=== PATIENT | male | born 1950 | race Caucasian/White ===

== ENCOUNTER 2017-01-20 14:57 | Inpatient (IN) | payer MEDICARE, OTHER ==
[2017-01-20] MEDS ORDERED: Sodium Chloride 0.9% 2.5 ML Syringe FLUSH PRN (15:06)
[2017-01-20] MEDS ORDERED: Sodium Chloride 0.9% 10 ML Syringe FLUSH PRN (15:06)
[2017-01-20] MEDS ORDERED: Sodium Chloride 0.9% 1,000 ML IV ONE ×2 (15:09→15:35)
[2017-01-20] MEDS ORDERED: Pantoprazole 40 MG Vial IVPUSH ONE (15:32)
--- NOTE | 2017-01-20 15:34 | EDM.PDOC ---
[id number]: HEMOGLOBIN LEVEL IS OFF Time Seen by Provider: 01/20/17 15:05 Source of Information: Reports: Patient History Limitations: Reports: No limitations - History of Present Illness INITIAL COMMENTS - FREE TEXT/NARRATIVE: History of present illness: [] Patient has been having black tarry stools for one month. He was seen in clinic today and had blood work done with an H&H of 04/04. Patient states he does feel weak, gets short of breath with exertion early and has been having brief episodes lasting a minute of chest pain. Patient is on Coumadin for atrial fibrillation and was taking xarelto in 2013 and suffered a GI bleed. He was then taken off anticoagulants but we started on Coumadin. Review of systems: As per history of present illness and below otherwise all systems reviewed and negative. Past medical history: As per history of present illness and as reviewed below otherwise noncontributory. Surgical history: As per history of present illness and as reviewed below otherwise noncontributory. Social history: No reported history of drug or alcohol abuse. Family history: As per history of present illness and as reviewed below otherwise noncontributory. Physical exam: General: Well developed, well nourished in NAD HEENT: Atraumatic, normocephalic, pupils reactive, negative for conjunctival pallor or scleral icterus, mucous membranes moist, throat clear, neck supple, nontender, trachea midline. Lungs: Clear to auscultation, breath sounds equal bilaterally, chest nontender. Heart: S1S2, regular, negative for clicks, rubs, or JVD. Abdomen: Soft, nondistended, nontender. Negative for masses or hepatosplenomegaly. Negative for costovertebral tenderness. Pelvis: Stable nontender. Genitourinary: Deferred. Rectal: Guaiac Positive black tarry stool Extremities: Atraumatic, negative for cords or calf pain. Neurovascular unremarkable. Neuro: Awake, alert, oriented. Cranial nerves II through XII unremarkable. Cerebellum unremarkable. Motor and sensory unremarkable throughout. Exam nonfocal. Diagnostics: [] Labs Therapeutics: [] IV hydration and blood has been ordered for transfusion. Protonix bolus and drip had been Ordered. Impression: [] GI bleed Plan: [] Admit to ICU to stabilize patient. Dr. Reddy was informed of this patient while in the ED. We will likely scope him as an outpatient. Definitive disposition and diagnosis as appropriate pending reevaluation and review of above. - Related Data Allergies/ADRs: Allergies Allergy/AdvReac Type Severity Reaction Status Date / Time No Known Allergies Allergy Verified 01/20/17 15:12 Home Meds: Home Meds Amiodarone HCl 100 mg PO DAILY 01/20/17 [History] Cholecalciferol (Vitamin D3) [Vitamin D3] 1,000 unit PO BID 01/20/17 [History] Cyanocobalamin (Vitamin B-12) [B-12] 1,000 mcg PO DAILY 01/20/17 [History] Fluticasone/Salmeterol [Advair Diskus 500-50] 1 puff INH BID 01/20/17 [History] Furosemide 10 mg PO BID 01/20/17 [History] Losartan [Cozaar] 25 mg PO DAILY 01/20/17 [History] Metoprolol Succinate [Toprol XL] 100 mg PO DAILY 01/20/17 [History] Rosuvastatin [Crestor] 40 mg PO BEDTIME 01/20/17 [History] SitaGLIPtin [Januvia] 50 mg PO DAILY 01/20/17 [History] Warfarin [Coumadin] 1.5 mg PO SUMOWEFR@1400 01/20/17 [History] Warfarin [Coumadin] 3 mg PO TUTHSA@1400 01/20/17 [History] Past Medical History Cardiovascular History: Reports: Bypass, CAD, High cholesterol, Hypertension, [place] Respiratory History: Reports: COPD Gastrointestinal History: Reports: GI bleed Genitourinary History: Reports: Renal disease Endocrine/Metabolic History: Reports: Diabetes, type II Hematologic History: Reports: Blood transfusion(s) - Infectious Disease History Infectious Disease History: Reports: Chicken pox, Measles, Mumps Social & Family History - Family History Family Medical History: Noncontributory - Tobacco Use Smoking Status *Q: Current Every Day Smoker Years of Tobacco use: 45 Packs/Tins Daily: 0.3 - Alcohol Use Days Per Week of Alcohol Use: 1 Number of Drinks Per Day: 5 Total Drinks Per Week: 5 - Recreational Drug Use Recreational Drug Use: No ED ROS GENERAL - Review of Systems Review Of Systems: See Below (See history of present illness) ED EXAM, GI/ABD - Physical Exam Exam: See Below (See history of present illness) Course - Vital Signs Last Recorded V/S: Last Vital Signs Temp 36.1 C 01/20/17 15:09 Pulse 96 01/20/17 15:48 Resp 18 01/20/17 15:09 BP 88/57 L 01/20/17 15:58 Pulse Ox 98 01/20/17 15:29 - Orders/Labs/Meds Orders: Active Orders 24 hr Category Date Time Status EKG Documentation Completion [RC] STAT Care 01/20/17 15:27 Active Guaiac [OCCULT BLOOD DIAGNOSTIC] [OP] Stat Lab 01/20/17 15:24 Ordered RED BLOOD CELLS LP [BBK] Stat Lab 01/20/17 15:07 Ordered TYPE AND SCREEN [BBK] Stat Lab 01/20/17 15:07 Ordered Pantoprazole [ProTONIX IV] 80 mg Med 01/20/17 15:45 Active Sodium Chloride 0.9% [Normal Saline] 100 ml IV Q10H Sodium Chloride 0.9% [Saline Flush] Med 01/20/17 15:06 Active 10 ml FLUSH ASDIRECTED PRN Sodium Chloride 0.9% [Saline Flush] Med 01/20/17 15:06 Active 2.5 ml FLUSH ASDIRECTED PRN Peripheral IV Insertion Adult [OM.PC] Stat Oth 01/20/17 15:06 Ordered Medication Orders Pantoprazole Sodium 80 mg/ (Sodium Chloride) 100 mls @ 10 mls/hr IV Q10H CRUZ Sodium Chloride (Saline Flush) 10 ml FLUSH ASDIRECTED PRN PRN Reason: Keep Vein Open Sodium Chloride (Saline Flush) 2.5 ml FLUSH ASDIRECTED PRN PRN Reason: Keep Vein Open Labs: Laboratory Tests 01/20/17 Range/Units 15:00 Troponin I < 0.10 (0.0-0.29) NG/ML Meds: Medications Generic Name Dose Route Start Last Admin Trade Name Freq PRN Reason Stop Dose Admin Pantoprazole Sodium 80 mg/ 100 mls @ 10 mls/hr 01/20/17 15:45 Sodium Chloride IV Q10H CRUZ Sodium Chloride 10 ml 01/20/17 15:06 Saline Flush FLUSH ASDIRECTED PRN Keep Vein Open Sodium Chloride 2.5 ml 01/20/17 15:06 Saline Flush FLUSH ASDIRECTED PRN Keep Vein Open Discontinued Medications Generic Name Dose Route Start Last Admin Trade Name Freq PRN Reason Stop Dose Admin Sodium Chloride 1,000 mls @ 999 mls/hr 01/20/17 15:09 01/20/17 15:00 Normal Saline IV 01/20/17 16:09 999 mls/hr .Bolus ONE Administration Pantoprazole Sodium 80 mg/ 100 mls @ 10 mls/hr 01/20/17 15:45 Sodium Chloride IV .Continuous CRUZ Sodium Chloride 1,000 mls @ 999 mls/hr 01/20/17 15:35 01/20/17 15:37 Normal Saline IV 01/20/17 16:35 999 mls/hr .Bolus ONE Administration Pantoprazole Sodium 80 mg 01/20/17 15:32 01/20/17 15:41 Protonix Iv IVPUSH 01/20/17 15:33 80 mg .BOLUS ONE Administration Departure - Departure Time of Disposition: 16:51 Disposition: Admitted As Inpatient 65 Condition: good Clinical Impression: GI bleed Qualifiers: GI bleed type/associated pathology: melena Qualified Code(s): K92.1 - Melena - My Orders Last 24 Hours: My Active Orders 01/20/17 15:06 Sodium Chloride 0.9% [Saline Flush] 10 ml FLUSH ASDIRECTED PRN Sodium Chloride 0.9% [Saline Flush] 2.5 ml FLUSH ASDIRECTED PRN Peripheral IV Insertion Adult [OM.PC] Stat 01/20/17 15:07 RED BLOOD CELLS LP [BBK] Stat TYPE AND SCREEN [BBK] Stat 01/20/17 15:24 Guaiac [OCCULT BLOOD DIAGNOSTIC] [OP] Stat 01/20/17 15:27 EKG Documentation Completion [RC] STAT 01/20/17 15:45 Pantoprazole [ProTONIX IV] 80 mg Sodium Chloride 0.9% [Normal Saline] 100 ml IV Q10H - Assessment/Plan Last 24 Hours: My Active Orders 01/20/17 15:06 Sodium Chloride 0.9% [Saline Flush] 10 ml FLUSH ASDIRECTED PRN Sodium Chloride 0.9% [Saline Flush] 2.5 ml FLUSH ASDIRECTED PRN Peripheral IV Insertion Adult [OM.PC] Stat 01/20/17 15:07 RED BLOOD CELLS LP [BBK] Stat TYPE AND SCREEN [BBK] Stat 01/20/17 15:24 Guaiac [OCCULT BLOOD DIAGNOSTIC] [OP] Stat 01/20/17 15:27 EKG Documentation Completion [RC] STAT 01/20/17 15:45 Pantoprazole [ProTONIX IV] 80 mg Sodium Chloride 0.9% [Normal Saline] 100 ml IV Q10H
[2017-01-20] MEDS ORDERED: Pantoprazole 80 MG in Sodium Chloride 0.9% 100 ML IV SCH (15:45)
[2017-01-20] MEDS: Pantoprazole 80 MG in Sodium Chloride 0.9% 100 ML IV SCH (17:00)
[2017-01-20] MEDS ORDERED: Acetaminophen 325 MG Tab PO PRN (17:05)
[2017-01-20] MEDS ORDERED: Ondansetron 4 MG Tab.DIS PO PRN (17:05)
--- NOTE | 2017-01-20 17:57 | PCM.HP ---
H&P History of Present Illness - General Date of Service: 01/20/17 Admit Problem/Dx: Admission Diagnosis/Problem Admission Diagnosis/Problem Melena Source of Information: Patient History Limitations: Reports: No limitations - History of Present Illness Initial Comments - Free Text/Narative: 67 year old male admitted with a GI bleed. Patient has been experiencing black tarry stools for the past month. He is currently on warfarin for atrial fibrillation. He has had a GI bleed 2 years ago when he was on Xarelto for atrial fibrillation. He required a blood transfusion at that time. Xarelto was stopped for a time and the patient was then switched to warfarin. With this current GI Bleed, the patient has been dizzy, lightheaded, weak and has experienced some mild SOB with exertion. He was seen in a family medicine clinic today and his HGB and HCT were found to be 6 and 23 respectively. Platelets were WNL. He was sent to the ER where he received NS bolus x2 and had 2 units of PRBC ordered. He was also given a protonix bolus and started on a protonix drip. He was tachycardic and hypotensive. He has been getting his INR checked frequently and today his INR in the clinic was 2.4. He has noticed easier bruising but has not noticed any other areas of bleeding. He does have a history of hemorrhoids. He has had both an endoscopy and colonoscopy done in the last few years. Colonoscopy showed 10 polyps which were removed. He has no history of gastric ulcers. He denies hemoptysis. He drinks 4-5 beers once a night per week. He is a current every day smoker. He also notes multiple bypass surgeries and one [place] that he knows of. He does see Dr. Simmons, box spinner, in [place], [place]. No history of DVT's. He denies any abdominal pain, fever, N/V. - Related Data Allergies/Adverse Reactions: Allergies Allergy/AdvReac Type Severity Reaction Status Date / Time No Known Allergies Allergy Verified 01/20/17 15:12 Home Medications: Home Meds Amiodarone HCl 100 mg PO DAILY 01/20/17 [History] Cholecalciferol (Vitamin D3) [Vitamin D3] 1,000 unit PO BID 01/20/17 [History] Cyanocobalamin (Vitamin B-12) [B-12] 1,000 mcg PO DAILY 01/20/17 [History] Fluticasone/Salmeterol [Advair Diskus 500-50] 1 puff INH BID 01/20/17 [History] Furosemide 10 mg PO BID 01/20/17 [History] Losartan [Cozaar] 25 mg PO DAILY 01/20/17 [History] Metoprolol Succinate [Toprol XL] 100 mg PO DAILY 01/20/17 [History] Rosuvastatin [Crestor] 40 mg PO BEDTIME 01/20/17 [History] SitaGLIPtin [Januvia] 50 mg PO DAILY 01/20/17 [History] Warfarin [Coumadin] 1.5 mg PO SUMOWEFR@1400 01/20/17 [History] Warfarin [Coumadin] 3 mg PO TUTHSA@1400 01/20/17 [History] Past Medical History Cardiovascular History: Reports: Bypass, CAD, High cholesterol, Hypertension, [place] Respiratory History: Reports: COPD Gastrointestinal History: Reports: GI bleed Genitourinary History: Reports: Renal disease Endocrine/Metabolic History: Reports: Diabetes, type II Hematologic History: Reports: Blood transfusion(s) - Infectious Disease History Infectious Disease History: Reports: Chicken pox, Measles, Mumps Social & Family History - Family History Family Medical History: Noncontributory - Tobacco Use Smoking Status *Q: Current Every Day Smoker Years of Tobacco use: 45 Packs/Tins Daily: 0.3 - Alcohol Use Days Per Week of Alcohol Use: 1 Number of Drinks Per Day: 5 Total Drinks Per Week: 5 - Recreational Drug Use Recreational Drug Use: No H&P Review of Systems - Review of Systems: Review Of Systems: See Below General: Reports: weakness, fatigue HEENT: Reports: no symptoms Pulmonary: Reports: Shortness of Breath. Denies: Wheezing, Cough, Hemoptysis Cardiovascular: Reports: chest pain, dyspnea on exertion Gastrointestinal: Reports: No symptoms, Black stool. Denies: Abdominal pain, Decreased appetite, Nausea, Vomiting Genitourinary: Reports: no symptoms Musculoskeletal: Reports: no symptoms Skin: Reports: no symptoms Psychiatric: Reports: no symptoms Neurological: Reports: No Symptoms, Dizziness Hematologic/Lymphatic: Reports: no symptoms, easy bruising Immunologic: Reports: no symptoms Exam - Exam Exam: See Below - Vital Signs Vital Signs: Last Vital Signs Temp 96.9 F 01/20/17 15:09 Pulse 96 01/20/17 15:48 Resp 18 01/20/17 15:09 BP 88/57 L 01/20/17 15:58 Pulse Ox 98 01/20/17 15:29 - Exam Quality Assessment: DVT prophylaxis (SCD's) General: alert, oriented, cooperative HEENT: Hearing intact, Other (mucous membranes are dry. Lower eyelids bilaterally are pale) Neck: supple, trachea midline, 2 Lungs: Clear to auscultation, Normal respiratory effort Cardiovascular: irregular rhythm (a-fib), tachycardia (129) Abdomen: normal bowel sounds, soft. No: guarding, rebound, tenderness Rectal (Males) Exam: Normal rectal tone, Heme + stool, Hemorrhoids Back Exam: normal inspection, full range of motion, NT Extremities: edema (+1 pitting edema). No: calf tenderness Peripheral Pulses: 1+: radial (L), radial (R) Skin: warm, dry, intact Neuro Extensive - Mental Status: alert, oriented x3, normal mood/affect, normal cognition Psychiatric: alert, normal affect, normal mood *Q Meaningful Use (ADM) - VTE *Q VTE Criteria *Q: VTE Pharmacological Contraindications *Q: Active Hemorrhage - Stroke *Q Stroke Criteria *Q: - AMI *Q AMI Criteria *Q: - Problem List (1) Atrial fibrillation SNOMED Code(s): 41537621 ICD Code: I48.91 - UNSPECIFIED ATRIAL FIBRILLATION Status: Acute Current Visit: Yes (2) Diabetes SNOMED Code(s): 66256754 ICD Code: E11.9 - TYPE 2 DIABETES MELLITUS WITHOUT COMPLICATIONS Status: Acute Current Visit: Yes Qualifiers: Diabetes mellitus type: type 2 (3) Kidney failure SNOMED Code(s): 41902033 ICD Code: N19 - UNSPECIFIED KIDNEY FAILURE Status: Acute Current Visit: Yes (4) GI bleed SNOMED Code(s): 77020171 ICD Code: K92.2 - GASTROINTESTINAL HEMORRHAGE, UNSPECIFIED Status: Acute Current Visit: Yes Qualifiers: GI bleed type/associated pathology: melena Qualified Code(s): K92.1 - Melena Problem List Initiated/Reviewed/Updated: Yes Orders Last 24hrs: Active Orders 24 hr Category Date Time Status Patient Status [ADT] Routine ADT 01/20/17 17:05 Ordered Antiembolic Devices [RC] PER UNIT ROUTINE Care 01/20/17 17:27 Ordered Blood Glucose Check, Bedside [RC] BIDAC Care 01/20/17 17:29 Ordered Blood Glucose Check, Bedside [RC] TIDAC Care 01/20/17 17:46 Ordered Height and Weight [RC] DAILY Care 01/20/17 17:05 Ordered Intake and Output [RC] QSHIFT Care 01/20/17 17:10 Ordered Notify Provider Vital Signs [RC] ASDIRECTED Care 01/20/17 17:10 Ordered Oxygen Therapy [RC] PRN Care 01/20/17 17:05 Ordered Pulse Oximetry [RC] PRN Care 01/20/17 17:10 Ordered Up With Assistance [RC] ASDIRECTED Care 01/20/17 17:05 Ordered VTE/DVT Education [RC] PER UNIT ROUTINE Care 01/20/17 17:05 Ordered Vital Signs [RC] Q4H Care 01/20/17 17:05 Ordered [place] [employer] Diet [DIET] Diet 01/20/17 Breakfast Ordered CBC WITH AUTO DIFF [HEME] AM Lab 01/21/17 05:11 Ordered CBC WITH AUTO DIFF [HEME] AM Lab 01/22/17 05:11 Ordered CBC WITH AUTO DIFF [HEME] AM Lab 01/23/17 05:11 Ordered INR,PT,PROTHROMBIN TIME [COAG] AM Lab 01/21/17 05:11 Ordered MAGNESIUM [CHEM] AM Lab 01/21/17 05:11 Ordered MAGNESIUM [CHEM] AM Lab 01/22/17 05:11 Ordered MAGNESIUM [CHEM] AM Lab 01/23/17 05:11 Ordered PHOSPHORUS [CHEM] AM Lab 01/21/17 05:11 Ordered PHOSPHORUS [CHEM] AM Lab 01/22/17 05:11 Ordered PHOSPHORUS [CHEM] AM Lab 01/23/17 05:11 Ordered Acetaminophen [Tylenol] Med 01/20/17 17:05 Ordered 650 mg PO Q4H PRN Amiodarone HCl [Amiodarone HCl] Med 01/21/17 09:00 Ordered 100 mg PO DAILY Cholecalciferol (Vitamin D3) [Vitamin D3] Med 01/20/17 21:00 Ordered 1,000 unit PO BID Cyanocobalamin (Vitamin B-12) Med 01/21/17 09:00 Ordered 1,000 mcg PO DAILY Fluticasone/Salmeterol [Advair Diskus 500-50] Med 01/20/17 21:00 Ordered 1 puff INH BID Folic Acid Med 01/21/17 09:00 Ordered 1 mg PO DAILY Insulin Aspart [NovoLOG] Med 01/21/17 07:30 Ordered See Protocol SUBCUT TIDAC Losartan Med 01/21/17 09:00 Ordered 25 mg PO DAILY Metoprolol Succinate [Toprol XL] Med 01/21/17 09:00 Ordered 100 mg PO DAILY Ondansetron [Zofran ODT] Med 01/20/17 17:05 Ordered 4 mg PO Q4H PRN Phytonadione [Mephyton] Med 01/20/17 17:45 Once 5 mg PO ONETIME ONE Rosuvastatin [Crestor] Med 01/20/17 21:00 Ordered 40 mg PO BEDTIME Thiamine [Vitamin B-1] Med 01/20/17 21:00 Ordered 100 mg PO BEDTIME Sequential Compression Device [OM.PC] Per Unit Routine Oth 01/20/17 17:17 Ordered VTE Pharmacological Contraindications [AST] Per Unit Oth 01/20/17 17:05 Ordered Routine Resuscitation Status Routine Resus Stat 01/20/17 17:05 Ordered Medication Orders Acetaminophen (Tylenol) 650 mg PO Q4H PRN PRN Reason: Pain (Mild 1-3)/fever Amiodarone HCl (Cordarone) 100 mg PO DAILY [facility] Cholecalciferol (Vitamin D3) 1,000 units PO BID CRUZ Cyanocobalamin (Vitamin B12) 1,000 mcg PO DAILY CRUZ Folic Acid (Folic Acid) 1 mg PO DAILY CRUZ Pantoprazole Sodium 80 mg/ (Sodium Chloride) 100 mls @ 10 mls/hr IV Q10H CRUZ Insulin Aspart (Novolog) 0 unit SUBCUT TIDAC CRUZ PRN Reason: Protocol Losartan Potassium (Cozaar) 25 mg PO DAILY CRUZ Metoprolol Succinate (Toprol Xl) 100 mg PO DAILY CRUZ Ondansetron HCl (Zofran Odt) 4 mg PO Q4H PRN PRN Reason: nausea, able to take PO Phytonadione (Mephyton) 5 mg PO ONETIME ONE Stop: 01/20/17 17:46 Rosuvastatin Calcium (Crestor) 40 mg PO BEDTIME CRUZ Fluticasone/Salmeterol (Advair Diskus 500-50) 1 puff INH BID CRUZ Sodium Chloride (Saline Flush) 10 ml FLUSH ASDIRECTED PRN PRN Reason: Keep Vein Open Sodium Chloride (Saline Flush) 2.5 ml FLUSH ASDIRECTED PRN PRN Reason: Keep Vein Open Thiamine HCl (Vitamin B-1) 100 mg PO BEDTIME CRUZ Assessment/Plan Comment:: 1. GI bleed: -2 units PRBC. Re-check HGB, HCT after. -Protonix drip running -Warfarin held. Lasix held secondary to hypotension -INR re-check in morning -Vitamin K 5mg ONETIME given for reversal of warfarin -spoke with Dr. Reddy, general surgeon, suggested scope as outpatient. Willing to see patient if needed. -Heme-occult + 2. A-fib. rate, rate controlled: -continue metoprolol 100mg qday -warfarin held 3. DM 2: -TIDAC blood sugar checks -novolog sliding scale. 4. Elevated BUN/Creatinine: -check daily BMP DVT prophylaxis: SCD
[2017-01-20] MEDS ORDERED: Furosemide 20 MG/2 ML VIAL IVPUSH ONE (18:35)
[2017-01-20] MEDS: Rosuvastatin 10 MG Tab PO SCH (21:13)
[2017-01-20] MEDS: Thiamine 100 MG Tab PO SCH (21:14)
[2017-01-20] MEDS: Cholecalciferol (Vitamin D3) 1,000 Unit Tab PO SCH (21:14)
[2017-01-20] MEDS: Fluticasone/Salmeterol 500-50 MCG Inhalation Powder 14/Diskus INH SCH (21:15)
[2017-01-21] MEDS: Pantoprazole 80 MG in Sodium Chloride 0.9% 100 ML IV SCH ×3 (01:27→22:44)
[2017-01-21] MEDS: Sodium Chloride 0.9% 1,000 ML IV SCH ×2 (02:16→20:18)
[2017-01-21] MEDS: Insulin Aspart 100 Units/ML 3 ML Pen SUBCUT SCH ×3 (08:53→18:28)
[2017-01-21] MEDS ORDERED: Losartan 50 MG Tab PO SCH (09:00)
[2017-01-21] MEDS ORDERED: Metoprolol Succinate 100 MG Tab.ER PO SCH (09:00)
[2017-01-21] MEDS: Fluticasone/Salmeterol 500-50 MCG Inhalation Powder 14/Diskus INH SCH ×2 (09:10→21:34)
--- NOTE | 2017-01-21 09:13 | PCM.PN ---
- General Info Date of Service: 01/21/17 Admission Dx/Problem (Free Text): Admission Diagnosis/Problem Admission Diagnosis/Problem Melena Subjective Update: Patient feels the same from admission. He complains of continued weakness, dizziness, and lightheadedness. He received 2 units of PRBC yesterday and his HGB improved to 7.7 (previous was 6.7). He has not had a BM since admission and has not noticed any new bleeding. Warfarin and aspirin continue to be held. He continues to be hypotensive. He denies any new concerns today including chest pain, palpitations, shortness of breath, abdominal pain, N/V. Functional Status: Reports: tolerating diet, urinating - Review of Systems General: Reports: No Symptoms, Weakness, Fatigue HEENT: Reports: no symptoms Pulmonary: Reports: no symptoms Cardiovascular: Reports: No Symptoms Gastrointestinal: Reports: Melena Genitourinary: Reports: no symptoms Musculoskeletal: Reports: no symptoms Skin: Reports: no symptoms Neurological: Reports: No Symptoms Psychiatric: Reports: no symptoms - Patient Data Vitals - most recent: Last Vital Signs Temp 97.5 F 01/21/17 08:49 Pulse 99 01/21/17 08:49 Resp 18 01/21/17 09:00 BP 89/64 L 01/21/17 09:00 Pulse Ox 95 01/21/17 09:00 Weight - most recent: 240 lb 15.444 oz I&O - last 24 hours: Intake & Output 01/20/17 01/21/17 01/21/17 22:59 06:59 14:59 Intake Total 550 300 0 Output Total 1300 1200 Balance -750 -900 0 Lab Results last 24 hrs: Laboratory Results - last 24 hr 01/20/17 01/21/17 01/21/17 Range/Units 21:42 04:35 04:35 WBC 5.79 (4.0-11.0) K/uL RBC 2.56 L (4.50-5.90) M/uL Hgb 7.7 L 7.0 L (13.0-17.0) g/dL Hct 25.2 L 23.1 L (38.0-50.0) % MCV 90.2 (80.0-98.0) fL MCH 27.3 (27.0-32.0) pg MCHC 30.3 L (31.0-37.0) g/dL RDW Std Deviation 58.6 (28.0-62.0) fl RDW Coeff of Jairon 18 H (11.0-15.0) % Plt Count 140 L (150-400) K/uL MPV 9.90 (7.40-12.00) fL Add Manual Diff YES Neutrophils % (Manual) 72 (48.0-80.0) % Lymphocytes % (Manual) 17 (16.0-40.0) % Monocytes % (Manual) 9 (0.0-15.0) % Eosinophils % (Manual) 1 (0.0-7.0) % Basophils % (Manual) 1 (0.0-1.5) % Nucleated RBC % 1.6 /100WBC Absolute Seg Neuts 4.2 Lymphocytes # (Manual) 1.0 Monocytes # (Manual) 0.5 Eosinophils # (Manual) 0.1 Basophils # (Manual) 0 Nucleated RBCs # 0 K/uL Polychromasia 1+ SLIGHT Anisocytosis 1+ SLIGHT INR (0.86-1.11) Sodium 138 (136-146) mmol/L Potassium 4.1 (3.5-5.1) mmol/L Chloride 112 H (98-110) mmol/L Carbon Dioxide 17 L (21-31) mmol/L BUN 29 H (6.0-23.0) mg/dL Creatinine 1.9 H (0.6-1.5) mg/dL Est Cr Clr Drug Dosing 33.75 mL/min Estimated GFR (MDRD) 35.4 ml/min Glucose 115 H (60-110) mg/dL Calcium 8.6 L (8.8-10.8) mg/dL Phosphorus 4.0 (2.4-4.7) mg/dL Magnesium 1.6 (1.5-2.3) mEq/L 01/21/17 Range/Units 04:35 WBC (4.0-11.0) K/uL RBC (4.50-5.90) M/uL Hgb (13.0-17.0) g/dL Hct (38.0-50.0) % MCV (80.0-98.0) fL MCH (27.0-32.0) pg MCHC (31.0-37.0) g/dL RDW Std Deviation (28.0-62.0) fl RDW Coeff of Jairon (11.0-15.0) % Plt Count (150-400) K/uL MPV (7.40-12.00) fL Add Manual Diff Neutrophils % (Manual) (48.0-80.0) % Lymphocytes % (Manual) (16.0-40.0) % Monocytes % (Manual) (0.0-15.0) % Eosinophils % (Manual) (0.0-7.0) % Basophils % (Manual) (0.0-1.5) % Nucleated RBC % /100WBC Absolute Seg Neuts Lymphocytes # (Manual) Monocytes # (Manual) Eosinophils # (Manual) Basophils # (Manual) Nucleated RBCs # K/uL Polychromasia Anisocytosis INR 2.28 H (0.86-1.11) Sodium (136-146) mmol/L Potassium (3.5-5.1) mmol/L Chloride (98-110) mmol/L Carbon Dioxide (21-31) mmol/L BUN (6.0-23.0) mg/dL Creatinine (0.6-1.5) mg/dL Est Cr Clr Drug Dosing mL/min Estimated GFR (MDRD) ml/min Glucose (60-110) mg/dL Calcium (8.8-10.8) mg/dL Phosphorus (2.4-4.7) mg/dL Magnesium (1.5-2.3) mEq/L Med Orders - Current: Current Medications Acetaminophen (Tylenol) 650 mg PO Q4H PRN PRN Reason: Pain (Mild 1-3)/fever Amiodarone HCl (Cordarone) 100 mg PO DAILY [facility] Cholecalciferol (Vitamin D3) 1,000 units PO BID [facility] Last Admin: 01/20/17 21:14 Dose: 1,000 units Cyanocobalamin (Vitamin B12) 1,000 mcg PO DAILY [facility] Folic Acid (Folic Acid) 1 mg PO DAILY [facility] Pantoprazole Sodium 80 mg/ (Sodium Chloride) 100 mls @ 10 mls/hr IV Q10H [facility] Last Admin: 01/21/17 01:27 Dose: 10 mls/hr Sodium Chloride (Normal Saline) 1,000 mls @ 125 mls/hr IV ASDIRECTED [facility] Last Admin: 01/21/17 02:16 Dose: 125 mls/hr Insulin Aspart (Novolog) 0 unit SUBCUT TIDAC CRUZ PRN Reason: Protocol Last Admin: 01/21/17 08:53 Dose: Not Given Losartan Potassium (Cozaar) 25 mg PO DAILY [facility] Metoprolol Succinate (Toprol Xl) 100 mg PO DAILY [facility] Ondansetron HCl (Zofran Odt) 4 mg PO Q4H PRN PRN Reason: nausea, able to take PO Rosuvastatin Calcium (Crestor) 40 mg PO BEDTIME [facility] Last Admin: 01/20/17 21:13 Dose: 40 mg Fluticasone/Salmeterol (Advair Diskus 500-50) 1 puff INH BID [facility] Last Admin: 01/21/17 09:10 Dose: 1 puff Sodium Chloride (Saline Flush) 10 ml FLUSH ASDIRECTED PRN PRN Reason: Keep Vein Open Sodium Chloride (Saline Flush) 2.5 ml FLUSH ASDIRECTED PRN PRN Reason: Keep Vein Open Thiamine HCl (Vitamin B-1) 100 mg PO BEDTIME [facility] Last Admin: 01/20/17 21:14 Dose: 100 mg Discontinued Medications Furosemide (Lasix) 20 mg IVPUSH NOW ONE Stop: 01/20/17 18:36 Last Admin: 01/20/17 19:05 Dose: 20 mg Sodium Chloride (Normal Saline) 1,000 mls @ 999 mls/hr IV .Bolus ONE Stop: 01/20/17 16:09 Last Admin: 01/20/17 15:00 Dose: 999 mls/hr Pantoprazole Sodium 80 mg/ (Sodium Chloride) 100 mls @ 10 mls/hr IV .Continuous [facility] Sodium Chloride (Normal Saline) 1,000 mls @ 999 mls/hr IV .Bolus ONE Stop: 01/20/17 16:35 Last Admin: 01/20/17 15:37 Dose: 999 mls/hr Pantoprazole Sodium (Protonix Iv) 80 mg IVPUSH .BOLUS ONE Stop: 01/20/17 15:33 Last Admin: 01/20/17 15:41 Dose: 80 mg Phytonadione (Aquamephyton) 5 mg PO ONETIME ONE Stop: 01/20/17 17:46 Last Admin: 01/20/17 18:38 Dose: Not Given Phytonadione (Aquamephyton) 5 mg IM ONETIME ONE Stop: 01/20/17 18:19 Last Admin: 01/20/17 18:45 Dose: 5 mg - Exam Quality Assessment: DVT prophylaxis (SCD's) General: alert, oriented, cooperative, no acute distress HEENT: Other (low eyelids bilaterally are pale in appearance) Neck: supple Lungs: Clear to auscultation, Normal respiratory effort Cardiovascular: Regular Rate, Irregular Rhythm (A-fib) Abdomen: bowel sounds present, soft, no tenderness, no distension Extremities: no edema, no calf tenderness Peripheral Pulses: 2+: radial (L), radial (R) Skin: warm, dry, intact Psy/Mental Status: alert, normal affect, normal mood - Problem List & Annotations (1) Atrial fibrillation SNOMED Code(s): 28739807 Code(s): I48.91 - UNSPECIFIED ATRIAL FIBRILLATION Status: Acute Current Visit: Yes (2) Diabetes SNOMED Code(s): 10547244 Code(s): E11.9 - TYPE 2 DIABETES MELLITUS WITHOUT COMPLICATIONS Status: Acute Current Visit: Yes Qualifiers: Diabetes mellitus type: type 2 (3) Kidney failure SNOMED Code(s): 44348662 Code(s): N19 - UNSPECIFIED KIDNEY FAILURE Status: Acute Current Visit: Yes (4) GI bleed SNOMED Code(s): 56748165 Code(s): K92.2 - GASTROINTESTINAL HEMORRHAGE, UNSPECIFIED Status: Acute Current Visit: Yes Qualifiers: GI bleed type/associated pathology: melena Qualified Code(s): K92.1 - Melena - Problem List Review Problem List Initiated/Reviewed/Updated: Yes - My Orders Last 24 Hours: My Active Orders 01/20/17 17:05 Patient Status [ADT] Routine Height and Weight [RC] DAILY Oxygen Therapy [RC] PRN Up With Assistance [RC] ASDIRECTED VTE/DVT Education [RC] PER UNIT ROUTINE Vital Signs [RC] Q1H Acetaminophen [Tylenol] 650 mg PO Q4H PRN Ondansetron [Zofran ODT] 4 mg PO Q4H PRN VTE Pharmacological Contraindications [AST] Per Unit Routine Resuscitation Status Routine 01/20/17 17:10 Intake and Output [RC] QSHIFT Notify Provider Vital Signs [RC] ASDIRECTED Pulse Oximetry [RC] PRN 01/20/17 17:17 Sequential Compression Device [OM.PC] Per Unit Routine 01/20/17 17:27 Antiembolic Devices [RC] PER UNIT ROUTINE 01/20/17 17:29 Blood Glucose Check, Bedside [RC] BIDAC 01/20/17 17:46 Blood Glucose Check, Bedside [RC] TIDAC 01/20/17 18:30 Sodium Chloride 0.9% [Normal Saline] 1,000 ml IV ASDIRECTED 01/20/17 21:00 Cholecalciferol (Vitamin D3) [Vitamin D3] 1,000 units PO BID Fluticasone/Salmeterol [Advair Diskus 500-50] 1 puff INH BID Rosuvastatin [Crestor] 40 mg PO BEDTIME Thiamine [Vitamin B-1] 100 mg PO BEDTIME 01/21/17 07:30 Insulin Aspart [NovoLOG] See Protocol SUBCUT TIDAC 01/21/17 09:00 Amiodarone [Cordarone] 100 mg PO DAILY Cyanocobalamin (Vitamin B12) [Vitamin B12] 1,000 mcg PO DAILY Folic Acid 1 mg PO DAILY Losartan [Cozaar] 25 mg PO DAILY Metoprolol Succinate [Toprol XL] 100 mg PO DAILY 01/22/17 05:11 BASIC METABOLIC PANEL,BMP [CHEM] AM CBC WITH AUTO DIFF [HEME] AM MAGNESIUM [CHEM] AM PHOSPHORUS [CHEM] AM 01/23/17 05:11 BASIC METABOLIC PANEL,BMP [CHEM] AM CBC WITH AUTO DIFF [HEME] AM MAGNESIUM [CHEM] AM PHOSPHORUS [CHEM] AM - Plan Plan:: 1. GI bleed: -receiving 2 more units PRBC (has received 2 already). Re-check of HGB was 7.7 ( previous was 6.7). Re-check following this transfusion. 4 more units have been ordered so we have them on-hand -Protonix drip running -Warfarin and aspirin held. -lasix, losartan and metoprolol all beiong held secondary to hypotension. -INR is 2.28 this morning -Dr. Reddy contacted again and will see the patient later this afternoon -Heme-occult + 2. A-fib. rate, rate controlled: -metoprolol d/c secondary to HTN. -continue with Amiodarone 100mg daily -warfarin held -being monitored in the ICU 3. DM 2: -TIDAC blood sugar checks -novolog sliding scale. 4. Elevated BUN/Creatinine: -stable. check daily BMP DVT prophylaxis: SCD
[2017-01-21] MEDS: Amiodarone 200 MG Tab PO SCH (09:37)
[2017-01-21] MEDS: Folic Acid 1 MG Tab PO SCH (09:38)
[2017-01-21] MEDS: Cholecalciferol (Vitamin D3) 1,000 Unit Tab PO SCH ×2 (09:38→20:29)
[2017-01-21] MEDS: Cyanocobalamin (Vitamin B12) 500 MCG Tab PO SCH (09:38)
--- NOTE | 2017-01-21 13:24 | PCM.CONS ---
H&P History of Present Illness - General Date of Service: 01/21/17 Admit Problem/Dx: Admission Diagnosis/Problem Admission Diagnosis/Problem Melena with profound anemia Source of Information: Patient History Limitations: Reports: No limitations - History of Present Illness Initial Comments - Free Text/Narative: Patient is a 67-year-old gentleman who was admitted to the hospital yesterday with a one-month history of decreased energy and melanotic stool. He had a similar episode to this 2 years ago while in [place]. He did require multiple unit transfusion and esophagogastroduodenoscopy with cauterization of gastric bleeders. He feels that this episode is very similar to his previous episode. Onset of Symptoms: Reports: gradual Duration of Symptoms: Reports: Week(s):, Chronic, Getting worse Location: Reports: abdomen Quality: Reports: Ache, Same as previous episode Severity: moderate Improves with: Reports: None Worsens with: Reports: None Associated Symptoms: Reports: diaphoresis, shortness of breath, weakness - Related Data Allergies/Adverse Reactions: Allergies Allergy/AdvReac Type Severity Reaction Status Date / Time No Known Allergies Allergy Verified 01/20/17 15:12 Home Medications: Home Meds Amiodarone HCl 100 mg PO DAILY 01/20/17 [History] Cholecalciferol (Vitamin D3) [Vitamin D3] 1,000 unit PO BID 01/20/17 [History] Cyanocobalamin (Vitamin B-12) [B-12] 1,000 mcg PO DAILY 01/20/17 [History] Fluticasone/Salmeterol [Advair Diskus 500-50] 1 puff INH BID 01/20/17 [History] Furosemide 10 mg PO BID 01/20/17 [History] Losartan [Cozaar] 25 mg PO DAILY 01/20/17 [History] Metoprolol Succinate [Toprol XL] 100 mg PO DAILY 01/20/17 [History] Rosuvastatin [Crestor] 40 mg PO BEDTIME 01/20/17 [History] SitaGLIPtin [Januvia] 50 mg PO DAILY 01/20/17 [History] Warfarin [Coumadin] 1.5 mg PO SUMOWEFR@1400 01/20/17 [History] Warfarin [Coumadin] 3 mg PO TUTHSA@1400 01/20/17 [History] Past Medical History Cardiovascular History: Reports: Bypass, CAD, High cholesterol, Hypertension, [place] Other Cardiovascular History: Decreased ejection fraction. Patient states it is 28%. Respiratory History: Reports: COPD Gastrointestinal History: Reports: GI bleed Genitourinary History: Reports: Renal disease Neurological History: Reports: Other (see below) Other Neuro History: restless leg syndrome Endocrine/Metabolic History: Reports: Diabetes, type II Other Endocrine/Metabolic History: pt states he is a borderline. Hematologic History: Reports: Blood transfusion(s) - Infectious Disease History Infectious Disease History: Reports: Chicken pox, Measles, Mumps Social & Family History - Family History Family Medical History: Noncontributory - Tobacco Use Smoking Status *Q: Current Every Day Smoker Years of Tobacco use: 45 Packs/Tins Daily: 0.3 Tobacco Use Comment: Patient currently smokes and is trying to quit by cutting back on smoking to the point of not smoking some days to hopefully not smoking at all. He denies need for medication patch and does not want any education or material to assist him in quitting. Patient states he can do this on his own. - Caffeine Use Caffeine Use: Reports: Tea - Alcohol Use Days Per Week of Alcohol Use: 1 Number of Drinks Per Day: 5 Total Drinks Per Week: 5 - Recreational Drug Use Recreational Drug Use: No H&P Review of Systems - Review of Systems: Review Of Systems: See Below General: Reports: weakness, fatigue. Denies: fever, chills, diaphoresis HEENT: Reports: no symptoms Pulmonary: Reports: Shortness of Breath. Denies: Wheezing, Pleuritic Chest Pain , Cough, Sputum, Hemoptysis Cardiovascular: Reports: no symptoms Gastrointestinal: Reports: Black stool, Melena. Denies: Nausea, Stool incontinence, Vomiting Genitourinary: Reports: no symptoms Musculoskeletal: Reports: no symptoms Skin: Reports: no symptoms Psychiatric: Reports: no symptoms Neurological: Reports: No Symptoms Hematologic/Lymphatic: Reports: anemia. Denies: easy bleeding, easy bruising Immunologic: Reports: no symptoms Exam - Exam Exam: See Below - Vital Signs Vital Signs: Last Vital Signs Temp 97.7 F 01/21/17 12:17 Pulse 100 01/21/17 12:17 Resp 21 H 01/21/17 12:17 BP 111/75 01/21/17 12:17 Pulse Ox 96 01/21/17 10:17 Weight: 240 lb 15.444 oz - Exam Quality Assessment: supplemental oxygen General: alert, oriented, cooperative, mild distress HEENT: Conjunctiva clear. No: Scleral icterus Neck: supple, trachea midline, 2+ carotid pulse wo bruit Lungs: Clear to auscultation, Normal respiratory effort Cardiovascular: other (rregularly irregular). No: bradycardia, tachycardia, systolic murmur Abdomen: normal bowel sounds, soft. No: organomegaly, peritoneal signs, distention, guarding, rigidity, rebound, tenderness (Male) Exam: No hernia Rectal (Males) Exam: Deferred Back Exam: normal inspection Extremities: normal inspection, normal pulses Skin: warm, dry, intact Neurological: cranial nerves intact Neuro Extensive - Mental Status: oriented x3, normal mood/affect Psychiatric: alert, normal affect, normal mood - Patient Data Lab Results last 24 hrs: Laboratory Results - last 24 hr 01/20/17 01/21/17 01/21/17 Range/Units 21:42 04:35 04:35 WBC 5.79 (4.0-11.0) K/uL RBC 2.56 L (4.50-5.90) M/uL Hgb 7.7 L 7.0 L (13.0-17.0) g/dL Hct 25.2 L 23.1 L (38.0-50.0) % MCV 90.2 (80.0-98.0) fL MCH 27.3 (27.0-32.0) pg MCHC 30.3 L (31.0-37.0) g/dL RDW Std Deviation 58.6 (28.0-62.0) fl RDW Coeff of Jairon 18 H (11.0-15.0) % Plt Count 140 L (150-400) K/uL MPV 9.90 (7.40-12.00) fL Add Manual Diff YES Neutrophils % (Manual) 72 (48.0-80.0) % Lymphocytes % (Manual) 17 (16.0-40.0) % Monocytes % (Manual) 9 (0.0-15.0) % Eosinophils % (Manual) 1 (0.0-7.0) % Basophils % (Manual) 1 (0.0-1.5) % Nucleated RBC % 1.6 /100WBC Absolute Seg Neuts 4.2 Lymphocytes # (Manual) 1.0 Monocytes # (Manual) 0.5 Eosinophils # (Manual) 0.1 Basophils # (Manual) 0 Nucleated RBCs # 0 K/uL Polychromasia 1+ SLIGHT Anisocytosis 1+ SLIGHT INR (0.86-1.11) Sodium 138 (136-146) mmol/L Potassium 4.1 (3.5-5.1) mmol/L Chloride 112 H (98-110) mmol/L Carbon Dioxide 17 L (21-31) mmol/L BUN 29 H (6.0-23.0) mg/dL Creatinine 1.9 H (0.6-1.5) mg/dL Est Cr Clr Drug Dosing 33.75 mL/min Estimated GFR (MDRD) 35.4 ml/min Glucose 115 H (60-110) mg/dL POC Glucose (60-110) mg/dL Calcium 8.6 L (8.8-10.8) mg/dL Phosphorus 4.0 (2.4-4.7) mg/dL Magnesium 1.6 (1.5-2.3) mEq/L 01/21/17 01/21/17 01/21/17 Range/Units 04:35 12:54 12:57 WBC (4.0-11.0) K/uL RBC (4.50-5.90) M/uL Hgb 9.1 L (13.0-17.0) g/dL Hct 28.9 L (38.0-50.0) % MCV (80.0-98.0) fL MCH (27.0-32.0) pg MCHC (31.0-37.0) g/dL RDW Std Deviation (28.0-62.0) fl RDW Coeff of Jairon (11.0-15.0) % Plt Count (150-400) K/uL MPV (7.40-12.00) fL Add Manual Diff Neutrophils % (Manual) (48.0-80.0) % Lymphocytes % (Manual) (16.0-40.0) % Monocytes % (Manual) (0.0-15.0) % Eosinophils % (Manual) (0.0-7.0) % Basophils % (Manual) (0.0-1.5) % Nucleated RBC % /100WBC Absolute Seg Neuts Lymphocytes # (Manual) Monocytes # (Manual) Eosinophils # (Manual) Basophils # (Manual) Nucleated RBCs # K/uL Polychromasia Anisocytosis INR 2.28 H (0.86-1.11) Sodium (136-146) mmol/L Potassium (3.5-5.1) mmol/L Chloride (98-110) mmol/L Carbon Dioxide (21-31) mmol/L BUN (6.0-23.0) mg/dL Creatinine (0.6-1.5) mg/dL Est Cr Clr Drug Dosing mL/min Estimated GFR (MDRD) ml/min Glucose (60-110) mg/dL POC Glucose 102 (60-110) mg/dL Calcium (8.8-10.8) mg/dL Phosphorus (2.4-4.7) mg/dL Magnesium (1.5-2.3) mEq/L Result Diagrams: 01/21/17 12:57 01/21/17 04:35 Consult PN Assessment/Plan Procedures: Procedures ASSAY OF CREATININE (01/16/17) ASSAY OF UREA NITROGEN (01/16/17) CT THORAX W/O DYE (01/16/17) ROUTINE VENIPUNCTURE (01/16/17) (1) Anemia associated with acute blood loss SNOMED Code(s): 348018857 Code(s): D62 - ACUTE POSTHEMORRHAGIC ANEMIA Priority: High Current Visit : Yes (2) Atrial fibrillation SNOMED Code(s): 26966643 Code(s): I48.91 - UNSPECIFIED ATRIAL FIBRILLATION Priority: Medium Current Visit: Yes Qualifiers: Atrial fibrillation type: chronic Qualified Code(s): I48.2 - Chronic atrial fibrillation (3) Diabetes SNOMED Code(s): 80267447 Code(s): E11.9 - TYPE 2 DIABETES MELLITUS WITHOUT COMPLICATIONS Priority: Medium Current Visit: Yes Qualifiers: Diabetes mellitus type: type 2 (4) GI bleed SNOMED Code(s): 69990561 Code(s): K92.2 - GASTROINTESTINAL HEMORRHAGE, UNSPECIFIED Priority: High Current Visit: Yes Qualifiers: GI bleed type/associated pathology: melena Qualified Code(s): K92.1 - Melena Problem List Initiated/Reviewed/Updated: Yes Plan: Given patients extremely low hemoglobin and decreased ejection fraction, I suspect he will require 6-8U PRBC's. He has required EGD w/ cauterization of his stomach in the past. That is not available here in [place]. Once he is stabilized, I recommend he undergo EGD by a home health lpn with the necessary equipment to cauterize a bleeding site if that is required.
[2017-01-21] MEDS: Rosuvastatin 10 MG Tab PO SCH (20:30)
[2017-01-21] MEDS: Thiamine 100 MG Tab PO SCH (20:30)
[2017-01-22] MEDS: Sodium Chloride 0.9% 1,000 ML IV SCH (04:18)
[2017-01-22] MEDS: Insulin Aspart 100 Units/ML 3 ML Pen SUBCUT SCH ×2 (06:38→12:29)
[2017-01-22] MEDS ORDERED: Magnesium Sulfate/Water 2 GM in Premix Bag 1 BAG IV ONE (06:52)
[2017-01-22] MEDS: Fluticasone/Salmeterol 500-50 MCG Inhalation Powder 14/Diskus INH SCH (08:30)
[2017-01-22] MEDS: Pantoprazole 80 MG in Sodium Chloride 0.9% 100 ML IV SCH (08:38)
[2017-01-22] MEDS: Amiodarone 200 MG Tab PO SCH (08:44)
[2017-01-22] MEDS: Cyanocobalamin (Vitamin B12) 500 MCG Tab PO SCH (08:44)
[2017-01-22] MEDS: Cholecalciferol (Vitamin D3) 1,000 Unit Tab PO SCH (08:44)
[2017-01-22] MEDS: Folic Acid 1 MG Tab PO SCH (08:44)
--- NOTE | 2017-01-22 11:31 | PCM.DCSUM1 ---
Discharge Summary - Hospital Course Free Text/Narrative:: Admission diagnosis: 1. GI bleed with anemia 2. Hypotension 3. Atrial fibrillation requiring anticoagulation with warfarin 4. Diabetes Mellitus 5. Chronic kidney failure Discharge diagnosis: 1. GI bleed with anemia, improved 2. Hypotension, improved 3. Atrial fibrillation with anticoagulation being held 4. Diabetes Mellitus, stable 5. Chronic kidney failure, stable 67 year old male that was found to have a HGB of 6 and a HCT of 23 while in his family physicians office with a chief complaint of fatigue, dizziness, lightheadedness and black tarry stools of one month duration. Patient was subsequently admitted to the ICU and received 5 units of PRBC while admitted. He was placed on a protonix drip. His HGB improved to 10.3 but decreased to 9.3 in a 12 hour period. He was assessed by our general surgeon who suggested that the patient needed to be transferred for EGD and cauterization of possible gastric ulcers. Patient was hypotensive on admission with BP of 95/63. This has improved with the transfusions and IVF with his systolics 100-115. His Metoprolol and losartan were held secondary to his hypotension. Patient does have atrial fibrillation requiring anticoagulation with warfarin. His warfarin was d/c but he remained on Amiodarone for rate control. Occasional HR 102-107. Patient monitored on telemetry. Initial INR was 2.4. He received 2 doses of IM Vitamin K 5mg with his INR at transfer being 1.6. Patient had a heme + stool on admission and continued to have black tarry stools throughout hospitalization. Patient also has chronic kidney disease with elevated BUN and creatinine. This remained stable during admission. Patient did not report any pain during admission. - Discharge Data Discharge Date: 01/22/17 Discharge Disposition: DC/Tfer to Acute Hospital 02 Condition: Fair - Discharge Diagnosis/Problem(s) (1) Atrial fibrillation SNOMED Code(s): 51623826 ICD Code: I48.91 - UNSPECIFIED ATRIAL FIBRILLATION Status: Acute Priority : Medium Current Visit: Yes Qualifiers: Atrial fibrillation type: chronic Qualified Code(s): I48.2 - Chronic atrial fibrillation (2) Diabetes SNOMED Code(s): 33535683 ICD Code: E11.9 - TYPE 2 DIABETES MELLITUS WITHOUT COMPLICATIONS Status: Acute Priority: Medium Current Visit: Yes Qualifiers: Diabetes mellitus type: type 2 (3) Kidney failure SNOMED Code(s): 75874912 ICD Code: N19 - UNSPECIFIED KIDNEY FAILURE Status: Acute Current Visit: Yes (4) GI bleed SNOMED Code(s): 89388482 ICD Code: K92.2 - GASTROINTESTINAL HEMORRHAGE, UNSPECIFIED Status: Acute Priority: High Current Visit: Yes Qualifiers: GI bleed type/associated pathology: melena Qualified Code(s): K92.1 - Melena - Patient Summary/Data Consults: Consultations 01/21/17 10:18 Consult to Physician [CONS] Routine General surgery: Dr. Nasim Reddy - Patient Instructions Diet: Diabetic Diet - Discharge Plan Home Medications: Home Meds Amiodarone HCl 100 mg PO DAILY 01/20/17 [History] Cholecalciferol (Vitamin D3) [Vitamin D3] 1,000 unit PO BID 01/20/17 [History] Fluticasone/Salmeterol [Advair Diskus 500-50] 1 puff INH BID 01/20/17 [History] Rosuvastatin [Crestor] 40 mg PO BEDTIME 01/20/17 [History] SitaGLIPtin [Januvia] 50 mg PO DAILY 01/20/17 [History] Insulin Aspart [NovoLOG] 0 unit SUBCUT TIDAC pen 01/22/17 [Rx] Ondansetron [Zofran ODT] 4 mg PO Q4H PRN #0 tab.dis 01/22/17 [Rx] Pantoprazole [ProTONIX IV] 80 mg IV Q10H vial 01/22/17 [Rx] Forms: ED Department Discharge - Discharge Summary/Plan Comment DC Time >30 min.: No Discharge Summary/Plan Comment: Admission diagnosis: 1. GI bleed with anemia 2. Hypotension 3. Atrial fibrillation requiring anticoagulation with warfarin 4. Diabetes Mellitus 5. Chronic kidney failure Discharge diagnosis: 1. GI bleed with anemia, improved 2. Hypotension, improved 3. Atrial fibrillation with anticoagulation being held 4. Diabetes Mellitus, stable 5. Chronic kidney failure, stable 67 year old male that was found to have a HGB of 6 and a HCT of 23 while in his family physicians office with a chief complaint of fatigue, dizziness, lightheadedness and black tarry stools of one month duration. Patient was subsequently admitted to the ICU and received 6 units of PRBC while admitted. He was placed on a protonix drip. His HGB improved to 10.3 but decreased to 9.3 in a 12 hour period. He was assessed by our general surgeon who suggested that the patient needed to be transferred for EGD and cauterization of possible gastric ulcers. Patient was hypotensive on admission with BP of 95/63. This has improved with the transfusions and IVF with his systolics 100-115. His Metoprolol and losartan were held secondary to his hypotension. Patient does have atrial fibrillation requiring anticoagulation with warfarin. His warfarin was d/c but he remained on Amiodarone for rate control. Occasional HR 102-107. Patient monitored on telemetry. Initial INR was 2.4. He received 2 doses of IM Vitamin K 5mg with his INR at transfer being 1.6. Patient had a heme + stool on admission and continued to have black tarry stools throughout hospitalization. Patient also has chronic kidney disease with elevated BUN and creatinine. This remained stable during admission. Patient did not report any pain during admission. Discharge plan: 1. Patient has been accepted for transfer to [facility] in [place], [place]. Gastroeneterologist, Dr. Arrington, has accepted the patient. He asked that I speak with the hospitalist for admission. I spoke with Dr. Chandler who accepted the patient. - Patient Data Vitals - Most Recent: Last Vital Signs Temp 97.5 F 01/22/17 10:55 Pulse 99 01/21/17 16:26 Resp 22 H 01/22/17 11:00 BP 107/69 01/22/17 11:00 Pulse Ox 95 01/22/17 11:00 Weight - Most Recent: 240 lb 15.444 oz I&O - Last 24 hours: Intake & Output 01/21/17 01/22/17 01/22/17 22:59 06:59 14:59 Intake Total 1450 1250 0 Output Total 1000 Balance 1450 250 0 Lab Results - Last 24 hrs: Laboratory Results - last 24 hr 01/21/17 01/21/17 01/21/17 Range/Units 12:54 12:57 17:34 WBC (4.0-11.0) K/uL RBC (4.50-5.90) M/uL Hgb 9.1 L (13.0-17.0) g/dL Hct 28.9 L (38.0-50.0) % MCV (80.0-98.0) fL MCH (27.0-32.0) pg MCHC (31.0-37.0) g/dL RDW Std Deviation (28.0-62.0) fl RDW Coeff of Jairon (11.0-15.0) % Plt Count (150-400) K/uL MPV (7.40-12.00) fL Add Manual Diff Neutrophils % (Manual) (48.0-80.0) % Band Neutrophils % % Lymphocytes % (Manual) (16.0-40.0) % Monocytes % (Manual) (0.0-15.0) % Eosinophils % (Manual) (0.0-7.0) % Nucleated RBC % /100WBC Absolute Seg Neuts Band Neutrophils # Lymphocytes # (Manual) Monocytes # (Manual) Eosinophils # (Manual) Nucleated RBCs # K/uL INR (0.86-1.11) Sodium (136-146) mmol/L Potassium (3.5-5.1) mmol/L Chloride (98-110) mmol/L Carbon Dioxide (21-31) mmol/L BUN (6.0-23.0) mg/dL Creatinine (0.6-1.5) mg/dL Est Cr Clr Drug Dosing mL/min Estimated GFR (MDRD) ml/min Glucose (60-110) mg/dL POC Glucose 102 116 H (60-110) mg/dL Calcium (8.8-10.8) mg/dL Phosphorus (2.4-4.7) mg/dL Magnesium (1.5-2.3) mEq/L 01/21/17 01/22/17 01/22/17 Range/Units 17:36 04:30 04:30 WBC 6.90 (4.0-11.0) K/uL RBC 3.46 L (4.50-5.90) M/uL Hgb 10.3 L 9.3 L (13.0-17.0) g/dL Hct 33.5 L 30.1 L (38.0-50.0) % MCV 87.0 (80.0-98.0) fL MCH 26.9 L (27.0-32.0) pg MCHC 30.9 L (31.0-37.0) g/dL RDW Std Deviation 59.2 (28.0-62.0) fl RDW Coeff of Jairon 19 H (11.0-15.0) % Plt Count 132 L (150-400) K/uL MPV 9.60 (7.40-12.00) fL Add Manual Diff YES Neutrophils % (Manual) 72 (48.0-80.0) % Band Neutrophils % 5 % Lymphocytes % (Manual) 16 (16.0-40.0) % Monocytes % (Manual) 6 (0.0-15.0) % Eosinophils % (Manual) 1 (0.0-7.0) % Nucleated RBC % 1.5 /100WBC Absolute Seg Neuts 5.0 Band Neutrophils # 0.3 Lymphocytes # (Manual) 1.1 Monocytes # (Manual) 0.4 Eosinophils # (Manual) 0.1 Nucleated RBCs # 0 K/uL INR (0.86-1.11) Sodium 141 (136-146) mmol/L Potassium 4.2 (3.5-5.1) mmol/L Chloride 116 H (98-110) mmol/L Carbon Dioxide 16 L (21-31) mmol/L BUN 27 H (6.0-23.0) mg/dL Creatinine 1.8 H (0.6-1.5) mg/dL Est Cr Clr Drug Dosing 35.62 mL/min Estimated GFR (MDRD) 37.7 ml/min Glucose 95 (60-110) mg/dL POC Glucose (60-110) mg/dL Calcium 8.3 L (8.8-10.8) mg/dL Phosphorus 3.5 (2.4-4.7) mg/dL Magnesium 1.7 (1.5-2.3) mEq/L 01/22/17 01/22/17 Range/Units 06:11 07:02 WBC (4.0-11.0) K/uL RBC (4.50-5.90) M/uL Hgb (13.0-17.0) g/dL Hct (38.0-50.0) % MCV (80.0-98.0) fL MCH (27.0-32.0) pg MCHC (31.0-37.0) g/dL RDW Std Deviation (28.0-62.0) fl RDW Coeff of Jairon (11.0-15.0) % Plt Count (150-400) K/uL MPV (7.40-12.00) fL Add Manual Diff Neutrophils % (Manual) (48.0-80.0) % Band Neutrophils % % Lymphocytes % (Manual) (16.0-40.0) % Monocytes % (Manual) (0.0-15.0) % Eosinophils % (Manual) (0.0-7.0) % Nucleated RBC % /100WBC Absolute Seg Neuts Band Neutrophils # Lymphocytes # (Manual) Monocytes # (Manual) Eosinophils # (Manual) Nucleated RBCs # K/uL INR 1.68 H (0.86-1.11) Sodium (136-146) mmol/L Potassium (3.5-5.1) mmol/L Chloride (98-110) mmol/L Carbon Dioxide (21-31) mmol/L BUN (6.0-23.0) mg/dL Creatinine (0.6-1.5) mg/dL Est Cr Clr Drug Dosing mL/min Estimated GFR (MDRD) ml/min Glucose (60-110) mg/dL POC Glucose 110 (60-110) mg/dL Calcium (8.8-10.8) mg/dL Phosphorus (2.4-4.7) mg/dL Magnesium (1.5-2.3) mEq/L BOBBY Results - Last 24 hrs: Microbiology 01/21/17 19:54 Stool Occult Blood (BOBBY) - Final Stool / Feces - Stool, Formed POSITIVE OCCULT BLOOD Med Orders - Current: Current Medications Acetaminophen (Tylenol) 650 mg PO Q4H PRN PRN Reason: Pain (Mild 1-3)/fever Amiodarone HCl (Cordarone) 100 mg PO DAILY [facility] Last Admin: 01/22/17 08:44 Dose: 100 mg Cholecalciferol (Vitamin D3) 1,000 units PO BID [facility] Last Admin: 01/22/17 08:44 Dose: 1,000 units Cyanocobalamin (Vitamin B12) 1,000 mcg PO DAILY [facility] Last Admin: 01/22/17 08:44 Dose: 1,000 mcg Folic Acid (Folic Acid) 1 mg PO DAILY [facility] Last Admin: 01/22/17 08:44 Dose: 1 mg Pantoprazole Sodium 80 mg/ (Sodium Chloride) 100 mls @ 10 mls/hr IV Q10H [facility] Last Admin: 01/22/17 08:38 Dose: 10 mls/hr Sodium Chloride (Normal Saline) 1,000 mls @ 125 mls/hr IV ASDIRECTED [facility] Last Admin: 01/22/17 04:18 Dose: 125 mls/hr Insulin Aspart (Novolog) 0 unit SUBCUT TIDAC [facility] PRN Reason: Protocol Last Admin: 01/22/17 06:38 Dose: Not Given Ondansetron HCl (Zofran Odt) 4 mg PO Q4H PRN PRN Reason: nausea, able to take PO Rosuvastatin Calcium (Crestor) 40 mg PO BEDTIME [facility] Last Admin: 01/21/17 20:30 Dose: 40 mg Fluticasone/Salmeterol (Advair Diskus 500-50) 1 puff INH BID [facility] Last Admin: 01/22/17 08:30 Dose: 1 puff Sodium Chloride (Saline Flush) 10 ml FLUSH ASDIRECTED PRN PRN Reason: Keep Vein Open Sodium Chloride (Saline Flush) 2.5 ml FLUSH ASDIRECTED PRN PRN Reason: Keep Vein Open Thiamine HCl (Vitamin B-1) 100 mg PO BEDTIME [facility] Last Admin: 01/21/17 20:30 Dose: 100 mg Discontinued Medications Furosemide (Lasix) 20 mg IVPUSH NOW ONE Stop: 01/20/17 18:36 Last Admin: 01/20/17 19:05 Dose: 20 mg Sodium Chloride (Normal Saline) 1,000 mls @ 999 mls/hr IV .Bolus ONE Stop: 01/20/17 16:09 Last Admin: 01/20/17 15:00 Dose: 999 mls/hr Pantoprazole Sodium 80 mg/ (Sodium Chloride) 100 mls @ 10 mls/hr IV .Continuous [facility] Sodium Chloride (Normal Saline) 1,000 mls @ 999 mls/hr IV .Bolus ONE Stop: 01/20/17 16:35 Last Admin: 01/20/17 15:37 Dose: 999 mls/hr Magnesium Sulfate 2 gm/ Premix 50 mls @ 25 mls/hr IV ONETIME ONE Stop: 01/22/17 08:51 Last Admin: 01/22/17 08:24 Dose: 25 mls/hr Losartan Potassium (Cozaar) 25 mg PO DAILY [facility] Last Admin: 01/21/17 09:17 Dose: Not Given Metoprolol Succinate (Toprol Xl) 100 mg PO DAILY [facility] Last Admin: 01/21/17 09:17 Dose: Not Given Pantoprazole Sodium (Protonix Iv) 80 mg IVPUSH .BOLUS ONE Stop: 01/20/17 15:33 Last Admin: 01/20/17 15:41 Dose: 80 mg Phytonadione (Aquamephyton) 5 mg PO ONETIME ONE Stop: 01/20/17 17:46 Last Admin: 01/20/17 18:38 Dose: Not Given Phytonadione (Aquamephyton) 5 mg IM ONETIME ONE Stop: 01/20/17 18:19 Last Admin: 01/20/17 18:45 Dose: 5 mg Phytonadione (Aquamephyton) 5 mg IM ONETIME ONE Stop: 01/21/17 10:21 Last Admin: 01/21/17 10:29 Dose: 5 mg *Q Meaningful Use (DIS) - VTE *Q VTE Criteria *Q: VTE Pharmacological Contraindications *Q: Active Hemorrhage - Stroke *Q Stroke Criteria *Q: - AMI *Q AMI Criteria *Q:
[2017-01-22 13:08] VITALS: BP 121/82
== END 2017-01-22 13:25 | DRG 379 ==
LOC: MW.ED 14:57 → MW.ICU 16:13 → UNDOADMIN 16:13 → MW.ICU 17:05 → UNDODISIN 01-22 13:25
PROVIDERS: ADMIT Internal Medicine; ATTEND Internal Medicine
PROC: 30233N1 Transfusion of Nonautologous Red Blood Cells into Peripheral Vein, Percutaneous Approach (ICD-10-PCS; principal; 2017-01-22)
DX: K92.2 Gastrointestinal hemorrhage, unspecified (principal); I25.10 Atherosclerotic heart disease of native coronary artery without angina pectoris; E78.00 Pure hypercholesterolemia, unspecified; I10 Essential (primary) hypertension; I25.2 Old myocardial infarction; J44.9 Chronic obstructive pulmonary disease, unspecified; D50.0 Iron deficiency anemia secondary to blood loss (chronic); N28.9 Disorder of kidney and ureter, unspecified; I95.9 Hypotension, unspecified; Z95.1 Presence of aortocoronary bypass graft; Z79.899 Other long term (current) drug therapy; I48.91 Unspecified atrial fibrillation; E11.9 Type 2 diabetes mellitus without complications; N18.9 Chronic kidney disease, unspecified; F17.200 Nicotine dependence, unspecified, uncomplicated; Z79.01 Long term (current) use of anticoagulants
CPT/HCPCS: 36415; 84484; 86156; 86850 ×2; 86900; 86901; 86922 ×2; 93005; 96361; 96374; 99285; C9113; J7040 ×2; 36430; 80048; 82272; 82962; 83735; 84100; 85014; 85018; 85025; 85610; 94640; 94664; A9270-GY; J3430; J3475; J7030; P9016